=== PATIENT | male | born 1935 | race Hispanic/Latino ===

== ENCOUNTER 2020-11-25 13:57 | Inpatient (IN) | payer MEDICARE ==
[~2020-11-25] VITALS: Ht 162.6 cm; Wt 59.9 kg
[2020-11-25 14:36] LABS: BASOPHILS % (AUTO) 0.3 % (0.0-5.0); HEMATOCRIT 42.4 % (42-54); LYMPHOCYTES % (AUTO) 11.8 % (21.0-51.0); MEAN CORPUSCULAR HEMOGLOBIN 30.6 pg (27.0-33.0); MONOCYTES % (AUTO) 7.9 % (3.0-13.0); NEUTROPHILS % (AUTO) 78.9 % (40.0-77.0); PLATELET COUNT (AUTO) 138 K/uL (130-400); RED BLOOD CELL COUNT(AUTO) 4.71 MIL/uL (4.50-6.20); RED CELL DISTRIBUTION WIDTH 13.9 % (11.0-15.5); WHITE BLOOD COUNT (AUTO) 3.8 K/uL (4.8-10.8)
[2020-11-25] MEDS ORDERED: ACETAMINOPHEN 325 MG TAB ONE (14:39)
[2020-11-25 14:53] LABS: INR 1.02 (0.85-1.15); PROTHROMBIN TIME 11.1 SEC (9.6-11.6)
[2020-11-25 14:54] LABS: PARTIAL THROMBOPLASTIN TIME 36.5 SEC (26.3-35.5)
[2020-11-25 15:00] LABS: B-TYPE NATRIURETIC PEPTIDE 110 pg/mL (0-100)
[2020-11-25 15:07] LABS: ABG BASE EXCESS 6.1 mmol/L (-2.0-3.0); ABG HCO3 29.1 mmol/L (21.0-28.0); ABG PCO2 37 mmHg (35-48)
[2020-11-25 15:15] LABS: APPEARANCE,URINE Cloudy (CLEAR); BILIRUBIN,URINE Negative (NEGATIVE); COLOR,URINE Dark Yellow (YELLOW); GLUCOSE, URINE (UA) Negative (NEGATIVE); KETONES,URINE Trace mg/dL (NEGATIVE); LEUKOCYTE ESTERASE ,URINE Trace (NEGATIVE); NITRATE,URINE Negative (NEGATIVE); OCCULT BLOOD,URINE Large (NEGATIVE); PH,URINE 6.5 (5.0-8.0); PROTEIN,URINE 300 mg/dL (NEGATIVE)
[2020-11-25 15:21] LABS: RBC,URINE None Seen /HPF (0-1)
[2020-11-25 15:22] LABS: BACTERIA,URINE Few /HPF (None Seen); SQUAMOUS EPITHELIAL CELL,UR None Seen /HPF (0-2)
[2020-11-25 15:33] LABS: ALBUMIN 2.6 g/dL (3.5-5.0); BILIRUBIN,TOTAL 0.7 mg/dL (0.2-1.0); CREATININE 1.4 mg/dL (0.5-1.5); TOTAL PROTEIN, SERUM 7.2 g/dL (6.0-8.3); TROPONIN I 0.08 ng/mL (0.00-0.06)
[2020-11-25 15:42] LABS: POTASSIUM 2.9 mmol/L (3.5-5.1)
[2020-11-25] MEDS: DEXAMETHASONE SOD PHOSPHATE 4 MG/ML 1ML VIAL IVP SCH (16:30)
[2020-11-25] MEDS ORDERED: ERGOCALCIFEROL (VITAMIN D2) 50,000 UNIT CAPSULE PO ONE (16:30)
[2020-11-25] MEDS: CEFTRIAXONE 1G VIAL IVP SCH (16:30)
[2020-11-25] MEDS ORDERED: DOXYCYCLINE 100MG+NS 250ML IV SCH (16:30)
[2020-11-25] MEDS ORDERED: ONDANSETRON 4MG INJ IV PRN (16:45)
[2020-11-25] MEDS ORDERED: MAG/ALUM/SIMETH 30 ML UDCUP PO PRN (16:45)
[2020-11-25] MEDS ORDERED: GUAIFENESIN-DM 200/20 MG 10 ML PO PRN (16:45)
[2020-11-25] MEDS ORDERED: NITROGLYCERIN 0.4 MG SL TAB SL PRN (16:45)
[2020-11-25] MEDS ORDERED: ACETAMINOPHEN 325 MG TAB PO PRN ×2 (16:45)
[2020-11-25] MEDS ORDERED: LACTULOSE 20 GM/30 ML UDCUP PO PRN (16:45)
[2020-11-25] MEDS ORDERED: ALBUTEROL INHALER 90MCG/INH IH PRN (16:45)
[2020-11-25] MEDS ORDERED: DiphenhydrAMINE HCL 50 MG/ML VIAL IV PRN (16:45)
[2020-11-25] MEDS ORDERED: DIPHENHYDRAMINE HCL 25 MG CAPSULE PO PRN (16:45)
[2020-11-25] MEDS: ENOXAPARIN SODIUM 40 MG/0.4 ML SYRINGE SQ SCH (17:00)
[2020-11-25] MEDS ORDERED: POTASSIUM CHLORIDE 10MEQ/100ML 100 ML IV PRN (17:15)
[2020-11-25] MEDS ORDERED: KCL 20 MEQ ERTAB PO PRN (17:15)
[2020-11-25] MEDS ORDERED: LACTATED RINGERS 1000ML 1,000 ML IV SCH (17:45)
[2020-11-25] MEDS ORDERED: DEXAMETHASONE SOD PHOSPHATE 4 MG/ML 1ML VIAL ONE (18:10)
[2020-11-25] MEDS ORDERED: ERGOCALCIFEROL (VITAMIN D2) 50,000 UNIT CAPSULE ONE (18:10)
[2020-11-25] MEDS ORDERED: CEFTRIAXONE 1G VIAL ONE (18:11)
[2020-11-25] MEDS ORDERED: DOXYCYCLINE 100MG+NS 250ML 250 ML IV ONE (18:11)
[2020-11-25] MEDS ORDERED: LACTATED RINGERS 1000ML 1,000 ML IV ONE (18:11)
[2020-11-25] MEDS ORDERED: ENOXAPARIN SODIUM 40 MG/0.4 ML SYRINGE SQ ONE (18:33)
[2020-11-25 21:00] VITALS: BP 149/69
[2020-11-25] MEDS: ASCORBIC ACID 500 MG TAB PO SCH (21:12)
[2020-11-25] MEDS: ACETYLCYSTEINE 600 MG CAPSULE PO SCH (21:12)
[2020-11-25] MEDS: FAMOTIDINE 20MG VIAL IV SCH (21:12)
[2020-11-25] MEDS: DOXYCYCLINE 100MG+NS 250ML 250 ML IV SCH (21:51)
[2020-11-25] MEDS: POTASSIUM CHLORIDE 10MEQ/100ML 100 ML IV PRN (22:11)
[2020-11-25] MEDS: POTASSIUM CHLORIDE 10% ELIXIR 20 MEQ/15 ML UDCUP PO PRN ×2 (22:12→23:48)
[2020-11-25 23:31] VITALS: BP 134/69
[2020-11-26 03:22] VITALS: BP 136/70
[2020-11-26 04:08] LABS: BASOPHILS % (AUTO) 0.4 % (0.0-5.0); HEMATOCRIT 41.9 % (42-54); LYMPHOCYTES % (AUTO) 9.8 % (21.0-51.0); MEAN CORPUSCULAR HEMOGLOBIN 30.1 pg (27.0-33.0); MEAN CORPUSCULAR HGB CONC 32.9 g/dL (32.0-36.0); MEAN CORPUSCULAR VOLUME 91.3 fL (79-99); PLATELET COUNT (AUTO) 148 K/uL (130-400); RED BLOOD CELL COUNT(AUTO) 4.59 MIL/uL (4.50-6.20); RED CELL DISTRIBUTION WIDTH 13.9 % (11.0-15.5); WHITE BLOOD COUNT (AUTO) 2.9 K/uL (4.8-10.8)
[2020-11-26 04:30] LABS: ALBUMIN 2.1 g/dL (3.5-5.0); BILIRUBIN,TOTAL 0.5 mg/dL (0.2-1.0); CREATININE 1.4 mg/dL (0.5-1.5); CRP QUANTITATIVE 145.1 mg/L (0.00-9.0); MAGNESIUM 2.1 mg/dL (1.80-2.40); POTASSIUM 3.3 mmol/L (3.5-5.1); TOTAL PROTEIN, SERUM 6.4 g/dL (6.0-8.3)
[2020-11-26 04:32] LABS: BAND NEUTROPHILS % (MANUAL) 24 % (0-2); LYMPHOCYTES % (MANUAL) 4 % (22-44); MAN.DIFF COMMENT-IMPRESSION MANUAL DIFFERENTIAL; MONOCYTES % (MANUAL) 2 % (2-9); PLATELET MORPHOLOGY COMMENT ADEQUATE; REACTIVE LYMPHOCYTES 2 % (0-0); SEGMENTED NEUTROPHILS % 68 % (40-70)
[2020-11-26] MEDS: CEFTRIAXONE 1G VIAL IVP SCH ×2 (04:47→16:53)
[2020-11-26] MEDS: DEXAMETHASONE SOD PHOSPHATE 4 MG/ML 1ML VIAL IVP SCH ×2 (04:48→16:53)
[2020-11-26] MEDS: POTASSIUM CHLORIDE 10MEQ/100ML 100 ML IV PRN ×2 (05:21→10:02)
[2020-11-26 08:00] VITALS: BP 152/76
[2020-11-26] MEDS: DOXYCYCLINE 100MG+NS 250ML 250 ML IV SCH ×2 (08:48→19:53)
[2020-11-26] MEDS: ZINC SULFATE 220 CAPSULE PO SCH (08:48)
[2020-11-26] MEDS: ACETYLCYSTEINE 600 MG CAPSULE PO SCH ×2 (08:49→19:52)
[2020-11-26] MEDS: ASCORBIC ACID 500 MG TAB PO SCH ×3 (08:49→19:52)
[2020-11-26] MEDS ORDERED: ENAL10TA18 PO (09:33)
[2020-11-26] MEDS ORDERED: FLUT16H EN (09:33)
[2020-11-26] MEDS ORDERED: TERA10CA4 PO (09:33)
[2020-11-26] MEDS ORDERED: ATEN1TAB3 PO (09:33)
[2020-11-26] MEDS ORDERED: ROSU20TA31 PO (09:33)
[2020-11-26] MEDS ORDERED: PREG75CA75 PO (09:33)
[2020-11-26 12:00] VITALS: BP 136/71
[2020-11-26 16:00] VITALS: BP 133/75
[2020-11-26] MEDS: ENOXAPARIN SODIUM 40 MG/0.4 ML SYRINGE SQ SCH (16:53)
[2020-11-26] MEDS: PHARMACY COMMUNICATION MISC SCH ×2 (19:00→23:00)
[2020-11-26 19:21] VITALS: BP 140/67
[2020-11-26] MEDS: FAMOTIDINE 20MG VIAL IV SCH (19:53)
[2020-11-26 23:58] VITALS: BP 145/70
[2020-11-27 03:30] VITALS: BP 127/51
[2020-11-27 04:00] LABS: BASOPHILS % (AUTO) 0.1 % (0.0-5.0); HEMATOCRIT 40.2 % (42-54); MEAN CORPUSCULAR HEMOGLOBIN 30.9 pg (27.0-33.0); MEAN CORPUSCULAR HGB CONC 34.8 g/dL (32.0-36.0); MEAN CORPUSCULAR VOLUME 88.7 fL (79-99); MONOCYTES % (AUTO) 4.2 % (3.0-13.0); NEUTROPHILS % (AUTO) 91.6 % (40.0-77.0); PLATELET COUNT (AUTO) 154 K/uL (130-400); RED BLOOD CELL COUNT(AUTO) 4.53 MIL/uL (4.50-6.20); RED CELL DISTRIBUTION WIDTH 13.7 % (11.0-15.5); WHITE BLOOD COUNT (AUTO) 10.3 K/uL (4.8-10.8)
[2020-11-27 04:43] LABS: ALBUMIN 2.2 g/dL (3.5-5.0); BILIRUBIN,TOTAL 0.5 mg/dL (0.2-1.0); CREATININE 1.1 mg/dL (0.5-1.5); CRP QUANTITATIVE 67.6 mg/L (0.00-9.0); POTASSIUM 3.2 mmol/L (3.5-5.1); TOTAL PROTEIN, SERUM 6.5 g/dL (6.0-8.3)
[2020-11-27] MEDS: CEFTRIAXONE 1G VIAL IVP SCH ×2 (05:02→16:55)
[2020-11-27] MEDS: DEXAMETHASONE SOD PHOSPHATE 4 MG/ML 1ML VIAL IVP SCH ×2 (05:02→16:55)
[2020-11-27 08:00] VITALS: BP 134/56
[2020-11-27] MEDS: PHARMACY COMMUNICATION MISC SCH ×5 (09:00→23:00)
[2020-11-27] MEDS: ACETYLCYSTEINE 600 MG CAPSULE PO SCH ×2 (09:11→22:09)
[2020-11-27] MEDS: ASCORBIC ACID 500 MG TAB PO SCH ×3 (09:11→22:10)
[2020-11-27] MEDS: ZINC SULFATE 220 CAPSULE PO SCH (09:11)
[2020-11-27] MEDS: DOXYCYCLINE 100MG+NS 250ML 250 ML IV SCH ×2 (09:11→22:09)
[2020-11-27] MEDS ORDERED: LORAZEPAM 0.5 MG TABLET PO SCH (11:53)
[2020-11-27 12:00] VITALS: BP 142/70
[2020-11-27 16:00] VITALS: BP 158/74
[2020-11-27] MEDS: ENOXAPARIN SODIUM 40 MG/0.4 ML SYRINGE SQ SCH (16:56)
[2020-11-27] MEDS: POTASSIUM CHLORIDE 10MEQ/100ML 100 ML IV PRN ×2 (16:56→18:19)
[2020-11-27 19:00] VITALS: BP 154/82
[2020-11-27] MEDS: FAMOTIDINE 20MG VIAL IV SCH (22:10)
[2020-11-27 23:00] VITALS: BP 150/76
[2020-11-28] MEDS: PHARMACY COMMUNICATION MISC SCH ×6 (03:00→19:00)
[2020-11-28 04:00] VITALS: BP 151/79
[2020-11-28 04:39] LABS: BASOPHILS % (AUTO) 0.1 % (0.0-5.0); HEMATOCRIT 39.8 % (42-54); MEAN CORPUSCULAR HEMOGLOBIN 30.1 pg (27.0-33.0); MEAN CORPUSCULAR HGB CONC 33.7 g/dL (32.0-36.0); MEAN CORPUSCULAR VOLUME 89.4 fL (79-99); MONOCYTES % (AUTO) 6.6 % (3.0-13.0); NEUTROPHILS % (AUTO) 88.1 % (40.0-77.0); PLATELET COUNT (AUTO) 156 K/uL (130-400); RED BLOOD CELL COUNT(AUTO) 4.45 MIL/uL (4.50-6.20); RED CELL DISTRIBUTION WIDTH 13.6 % (11.0-15.5); WHITE BLOOD COUNT (AUTO) 8.9 K/uL (4.8-10.8)
[2020-11-28 05:10] LABS: ALBUMIN 2.1 g/dL (3.5-5.0); BILIRUBIN,TOTAL 0.6 mg/dL (0.2-1.0); CREATININE 1.1 mg/dL (0.5-1.5); CRP QUANTITATIVE 73.6 mg/L (0.00-9.0); POTASSIUM 3.6 mmol/L (3.5-5.1); TOTAL PROTEIN, SERUM 6.3 g/dL (6.0-8.3)
[2020-11-28] MEDS: CEFTRIAXONE 1G VIAL IVP SCH ×2 (05:18→17:34)
[2020-11-28] MEDS: DEXAMETHASONE SOD PHOSPHATE 4 MG/ML 1ML VIAL IVP SCH (05:19)
[2020-11-28 07:00] VITALS: BP 153/77
[2020-11-28] MEDS: ASCORBIC ACID 500 MG TAB PO SCH ×3 (08:51→21:29)
[2020-11-28] MEDS: ZINC SULFATE 220 CAPSULE PO SCH (08:52)
[2020-11-28] MEDS: ACETYLCYSTEINE 600 MG CAPSULE PO SCH ×2 (08:52→21:29)
[2020-11-28] MEDS: DOXYCYCLINE 100MG+NS 250ML 250 ML IV SCH ×2 (08:52→21:29)
[2020-11-28 12:00] VITALS: BP 135/73
[2020-11-28 16:30] VITALS: BP 146/71
[2020-11-28] MEDS: ENOXAPARIN SODIUM 40 MG/0.4 ML SYRINGE SQ SCH (17:34)
[2020-11-28 20:00] VITALS: BP 160/80
[2020-11-28] MEDS: FAMOTIDINE 20MG VIAL IV SCH (21:29)
[2020-11-28 23:47] VITALS: BP 161/75
[2020-11-29] MEDS: CEFTRIAXONE 1G VIAL IVP SCH ×2 (04:10→19:30)
[2020-11-29 04:30] VITALS: BP 161/66
[2020-11-29 04:59] LABS: BASOPHILS % (AUTO) 0.1 % (0.0-5.0); HEMATOCRIT 39.8 % (42-54); LYMPHOCYTES % (AUTO) 6.6 % (21.0-51.0); MEAN CORPUSCULAR HEMOGLOBIN 30.8 pg (27.0-33.0); MEAN CORPUSCULAR HGB CONC 34.7 g/dL (32.0-36.0); MEAN CORPUSCULAR VOLUME 88.8 fL (79-99); MONOCYTES % (AUTO) 5.5 % (3.0-13.0); NEUTROPHILS % (AUTO) 86.4 % (40.0-77.0); PLATELET COUNT (AUTO) 192 K/uL (130-400); RED BLOOD CELL COUNT(AUTO) 4.48 MIL/uL (4.50-6.20); RED CELL DISTRIBUTION WIDTH 13.6 % (11.0-15.5); WHITE BLOOD COUNT (AUTO) 8.8 K/uL (4.8-10.8)
[2020-11-29 05:36] LABS: BILIRUBIN,TOTAL 0.8 mg/dL (0.2-1.0); CREATININE 0.9 mg/dL (0.5-1.5); CRP QUANTITATIVE 48.7 mg/L (0.00-9.0); TOTAL PROTEIN, SERUM 6.1 g/dL (6.0-8.3)
[2020-11-29] MEDS: POTASSIUM CHLORIDE 10MEQ/100ML 100 ML IV PRN ×2 (05:50→11:14)
[2020-11-29] MEDS: PHARMACY COMMUNICATION MISC SCH ×6 (07:00→23:00)
[2020-11-29 08:00] VITALS: BP 159/82
[2020-11-29] MEDS: ACETYLCYSTEINE 600 MG CAPSULE PO SCH ×2 (08:46→20:11)
[2020-11-29] MEDS: ASCORBIC ACID 500 MG TAB PO SCH ×3 (08:46→20:12)
[2020-11-29] MEDS: DEXAMETHASONE SOD PHOSPHATE 4 MG/ML 1ML VIAL IVP SCH (08:46)
[2020-11-29] MEDS: ZINC SULFATE 220 CAPSULE PO SCH (08:46)
[2020-11-29] MEDS: DOXYCYCLINE 100MG+NS 250ML 250 ML IV SCH ×2 (08:47→20:11)
[2020-11-29 12:00] VITALS: BP 164/80
[2020-11-29 16:00] VITALS: BP 160/82
[2020-11-29] MEDS: ENOXAPARIN SODIUM 40 MG/0.4 ML SYRINGE SQ SCH (17:37)
[2020-11-29 20:00] VITALS: BP 163/82
[2020-11-29] MEDS: FAMOTIDINE 20MG VIAL IV SCH (20:11)
[2020-11-30] MEDS: PHARMACY COMMUNICATION MISC SCH ×8 (03:00→23:00)
[2020-11-30] MEDS: CEFTRIAXONE 1G VIAL IVP SCH (03:36)
[2020-11-30 04:00] VITALS: BP 136/72
[2020-11-30 05:13] LABS: BASOPHILS % (AUTO) 0.1 % (0.0-5.0); HEMATOCRIT 43.2 % (42-54); LYMPHOCYTES % (AUTO) 7.1 % (21.0-51.0); MEAN CORPUSCULAR HEMOGLOBIN 29.5 pg (27.0-33.0); MEAN CORPUSCULAR HGB CONC 33.1 g/dL (32.0-36.0); MEAN CORPUSCULAR VOLUME 89.3 fL (79-99); MONOCYTES % (AUTO) 4.3 % (3.0-13.0); NEUTROPHILS % (AUTO) 86.5 % (40.0-77.0); PLATELET COUNT (AUTO) 216 K/uL (130-400); RED BLOOD CELL COUNT(AUTO) 4.84 MIL/uL (4.50-6.20); RED CELL DISTRIBUTION WIDTH 13.5 % (11.0-15.5); WHITE BLOOD COUNT (AUTO) 7.6 K/uL (4.8-10.8)
[2020-11-30 05:47] LABS: BILIRUBIN,DIRECT 0.1 mg/dL (0.0-0.3); BILIRUBIN,TOTAL 0.6 mg/dL (0.2-1.0); CREATININE 0.9 mg/dL (0.5-1.5); CRP QUANTITATIVE 68.6 mg/L (0.00-9.0); TOTAL PROTEIN, SERUM 6.2 g/dL (6.0-8.3)
[2020-11-30 05:56] LABS: POTASSIUM 2.9 mmol/L (3.5-5.1)
[2020-11-30] MEDS: POTASSIUM CHLORIDE 10MEQ/100ML 100 ML IV PRN ×2 (06:28→20:35)
[2020-11-30 08:00] VITALS: BP 172/79
[2020-11-30] MEDS: ZINC SULFATE 220 CAPSULE PO SCH (08:10)
[2020-11-30] MEDS: ACETYLCYSTEINE 600 MG CAPSULE PO SCH (08:10)
[2020-11-30] MEDS: KCL 20 MEQ ERTAB PO SCH (08:11)
[2020-11-30] MEDS: DEXAMETHASONE SOD PHOSPHATE 4 MG/ML 1ML VIAL IVP SCH (08:16)
[2020-11-30] MEDS: ASCORBIC ACID 500 MG TAB PO SCH ×3 (08:16→20:35)
[2020-11-30] MEDS: DOXYCYCLINE 100MG+NS 250ML 250 ML IV SCH (08:16)
[2020-11-30] MEDS ORDERED: KCL 20 MEQ ERTAB PO SCH (08:30)
[2020-11-30] MEDS: MAGNESIUM 2GM PREMIX 50ML 50 ML IV SCH (11:24)
[2020-11-30 12:00] VITALS: BP 138/66
[2020-11-30] MEDS ORDERED: REMDESIVIR (EUA) 520 200 MG in 0.9% NACL 250ML 250 ML IV ONE (14:00)
[2020-11-30] MEDS ORDERED: COMPOUND IV REFRIGERATED 1 EACH IVSOLN MISC PRN (14:00)
[2020-11-30 16:00] VITALS: BP 141/72
[2020-11-30] MEDS ORDERED: PHARMACY COMMUNICATION MISC SCH (16:45)
[2020-11-30] MEDS: ENOXAPARIN SODIUM 40 MG/0.4 ML SYRINGE SQ SCH (17:44)
[2020-11-30 20:00] VITALS: BP 145/80
[2020-11-30] MEDS: FAMOTIDINE 20MG VIAL IV SCH (20:35)
[2020-12-01] VITALS: BP 146/80
[2020-12-01] MEDS: PHARMACY COMMUNICATION MISC SCH ×9 (03:00→23:00)
[2020-12-01 04:00] VITALS: BP 144/77
[2020-12-01 04:35] LABS: BASOPHILS % (AUTO) 0.7 % (0.0-5.0); EOSINOPHILS % (AUTO) 0.7 % (0.0-8.0); HEMATOCRIT 44.1 % (42-54); LYMPHOCYTES % (AUTO) 7.1 % (21.0-51.0); MEAN CORPUSCULAR HEMOGLOBIN 30.9 pg (27.0-33.0); MEAN CORPUSCULAR HGB CONC 34.5 g/dL (32.0-36.0); MEAN CORPUSCULAR VOLUME 89.6 fL (79-99); MONOCYTES % (AUTO) 3.8 % (3.0-13.0); NEUTROPHILS % (AUTO) 83.7 % (40.0-77.0); PLATELET COUNT (AUTO) 230 K/uL (130-400); RED BLOOD CELL COUNT(AUTO) 4.92 MIL/uL (4.50-6.20); WHITE BLOOD COUNT (AUTO) 7.3 K/uL (4.8-10.8)
[2020-12-01 04:50] LABS: ALBUMIN 2.1 g/dL (3.5-5.0); BILIRUBIN,TOTAL 0.9 mg/dL (0.2-1.0); CRP QUANTITATIVE 146.8 mg/L (0.00-9.0); MAGNESIUM 1.8 mg/dL (1.80-2.40); POTASSIUM 3.1 mmol/L (3.5-5.1); TOTAL PROTEIN, SERUM 6.6 g/dL (6.0-8.3)
[2020-12-01] MEDS: REMDESIVIR LABS MISC SCH (06:00)
[2020-12-01 08:00] VITALS: BP 166/66
[2020-12-01] MEDS ORDERED: DEXAMETHASONE SOD PHOSPHATE 4 MG/ML 1ML VIAL IVP SCH (09:00)
[2020-12-01] MEDS ORDERED: DEXAMETHASONE SOD PHOSPHATE 4 MG/ML 1ML VIAL ONE (09:16)
[2020-12-01] MEDS: ZINC SULFATE 220 CAPSULE PO SCH (09:21)
[2020-12-01] MEDS: ASCORBIC ACID 500 MG TAB PO SCH ×3 (09:21→20:13)
[2020-12-01] MEDS: KCL 20 MEQ ERTAB PO SCH (09:21)
[2020-12-01] MEDS: DEXAMETHASONE SOD PHOSPHATE 4 MG/ML 1ML VIAL IVP SCH ×2 (09:22→20:13)
[2020-12-01 12:00] VITALS: BP 175/77
[2020-12-01] MEDS: REMDESIVIR (EUA) 520 100 MG in 0.9% NACL 250ML 250 ML IV SCH (14:16)
[2020-12-01 16:00] VITALS: BP 156/86
[2020-12-01] MEDS: ENOXAPARIN SODIUM 40 MG/0.4 ML SYRINGE SQ SCH (16:27)
[2020-12-01] MEDS: FAMOTIDINE 20MG VIAL IV SCH (20:12)
[2020-12-01 20:46] VITALS: BP 169/86
[2020-12-02] VITALS (9 sets, daily range): BP systolic 142–185; BP diastolic 72–93
[2020-12-02] MEDS: PHARMACY COMMUNICATION MISC SCH ×9 (03:00→23:00)
[2020-12-02 05:13] LABS: BILIRUBIN,TOTAL 1.1 mg/dL (0.2-1.0); CREATININE 0.9 mg/dL (0.5-1.5); CRP QUANTITATIVE 163.2 mg/L (0.00-9.0); POTASSIUM 3.7 mmol/L (3.5-5.1); TOTAL PROTEIN, SERUM 6.7 g/dL (6.0-8.3)
[2020-12-02] MEDS: REMDESIVIR LABS MISC SCH (06:00)
[2020-12-02] MEDS ORDERED: AMLODIPINE 5 MG TAB PO SCH (07:15)
[2020-12-02] MEDS: BARICITINIB (EUA) 2 MG TABLET PO SCH (08:37)
[2020-12-02] MEDS: ZINC SULFATE 220 CAPSULE PO SCH (08:37)
[2020-12-02] MEDS: ASCORBIC ACID 500 MG TAB PO SCH ×3 (08:37→22:11)
[2020-12-02] MEDS: KCL 20 MEQ ERTAB PO SCH (08:37)
[2020-12-02] MEDS: DEXAMETHASONE SOD PHOSPHATE 4 MG/ML 1ML VIAL IVP SCH ×2 (08:37→22:12)
[2020-12-02] MEDS ORDERED: DEXMEDETOMIDINE HCL 200 MCG in 0.9%NACL 50ML 50 ML IV SCH (11:00)
[2020-12-02] MEDS: REMDESIVIR (EUA) 520 100 MG in 0.9% NACL 250ML 250 ML IV SCH (14:11)
[2020-12-02] MEDS: ENOXAPARIN SODIUM 40 MG/0.4 ML SYRINGE SQ SCH (17:42)
[2020-12-02] MEDS: DEXMEDETOMIDINE HCL 400 MCG in 0.9%NACL 100ML 100 ML IV SCH (18:21)
[2020-12-02] MEDS: FAMOTIDINE 20MG VIAL IV SCH (22:11)
[2020-12-03] VITALS (24 sets, daily range): BP systolic 131–175; BP diastolic 61–86
[2020-12-03] MEDS: PHARMACY COMMUNICATION MISC SCH ×7 (03:00→19:00)
[2020-12-03 03:56] LABS: CRP QUANTITATIVE 79.3 mg/L (0.00-9.0); MAGNESIUM 1.7 mg/dL (1.80-2.40)
[2020-12-03 05:24] LABS: CREATININE 0.9 mg/dL (0.5-1.5); POTASSIUM 4.1 mmol/L (3.5-5.1)
[2020-12-03 05:25] LABS: ALBUMIN 2.1 g/dL (3.5-5.0); BILIRUBIN,TOTAL 0.9 mg/dL (0.2-1.0); TOTAL PROTEIN, SERUM 6.5 g/dL (6.0-8.3)
[2020-12-03 05:29] LABS: BASOPHILS % (AUTO) 0.3 % (0.0-5.0); MEAN CORPUSCULAR HEMOGLOBIN 29.8 pg (27.0-33.0); MEAN CORPUSCULAR HGB CONC 32.8 g/dL (32.0-36.0); MEAN CORPUSCULAR VOLUME 90.9 fL (79-99); MONOCYTES % (AUTO) 4.7 % (3.0-13.0); PLATELET COUNT (AUTO) 285 K/uL (130-400); RED BLOOD CELL COUNT(AUTO) 4.73 MIL/uL (4.50-6.20)
[2020-12-03] MEDS: MAGNESIUM 2GM PREMIX 50ML 50 ML IV SCH (05:40)
[2020-12-03] MEDS: REMDESIVIR LABS MISC SCH (06:00)
[2020-12-03] MEDS: ASCORBIC ACID 500 MG TAB PO SCH ×3 (08:09→23:03)
[2020-12-03] MEDS: ZINC SULFATE 220 CAPSULE PO SCH (08:09)
[2020-12-03] MEDS: DEXAMETHASONE SOD PHOSPHATE 4 MG/ML 1ML VIAL IVP SCH ×2 (08:10→23:03)
[2020-12-03] MEDS ORDERED: AMLODIPINE 5 MG TAB PO SCH ×2 (09:00→14:00)
[2020-12-03] MEDS: BARICITINIB (EUA) 2 MG TABLET PO SCH (09:16)
[2020-12-03] MEDS: REMDESIVIR (EUA) 520 100 MG in 0.9% NACL 250ML 250 ML IV SCH (13:28)
[2020-12-03] MEDS: ENOXAPARIN SODIUM 40 MG/0.4 ML SYRINGE SQ SCH ×2 (15:25→23:04)
[2020-12-03] MEDS: ATORVASTATIN 40 MG TABLET PO SCH (23:03)
[2020-12-03] MEDS: FAMOTIDINE 20MG VIAL IV SCH (23:04)
[2020-12-04] VITALS (12 sets, daily range): BP systolic 116–169; BP diastolic 63–84
[2020-12-04] MEDS: PHARMACY COMMUNICATION MISC SCH ×3 (03:00→19:00)
[2020-12-04 05:35] LABS: BASOPHILS % (AUTO) 0.2 % (0.0-5.0); HEMATOCRIT 43.1 % (42-54); LYMPHOCYTES % (AUTO) 3.8 % (21.0-51.0); MEAN CORPUSCULAR HEMOGLOBIN 29.5 pg (27.0-33.0); MEAN CORPUSCULAR HGB CONC 32.7 g/dL (32.0-36.0); MEAN CORPUSCULAR VOLUME 90.2 fL (79-99); MONOCYTES % (AUTO) 4.2 % (3.0-13.0); NEUTROPHILS % (AUTO) 89.1 % (40.0-77.0); PLATELET COUNT (AUTO) 302 K/uL (130-400); RED BLOOD CELL COUNT(AUTO) 4.78 MIL/uL (4.50-6.20); RED CELL DISTRIBUTION WIDTH 13.9 % (11.0-15.5); WHITE BLOOD COUNT (AUTO) 5.5 K/uL (4.8-10.8)
[2020-12-04] MEDS: REMDESIVIR LABS MISC SCH (06:00)
[2020-12-04 06:04] LABS: ALBUMIN 2.1 g/dL (3.5-5.0); BILIRUBIN,TOTAL 1.2 mg/dL (0.2-1.0); CREATININE 0.9 mg/dL (0.5-1.5); CRP QUANTITATIVE 60.9 mg/L (0.00-9.0); POTASSIUM 3.8 mmol/L (3.5-5.1); TOTAL PROTEIN, SERUM 6.3 g/dL (6.0-8.3)
[2020-12-04] MEDS: POTASSIUM CHLORIDE 10% ELIXIR 20 MEQ/15 ML UDCUP PO PRN (06:58)
[2020-12-04] MEDS: ASCORBIC ACID 500 MG TAB PO SCH ×3 (08:11→21:30)
[2020-12-04] MEDS: TERAZOSIN 5MG CAP PO SCH (08:11)
[2020-12-04] MEDS: AMLODIPINE 5 MG TAB PO SCH (08:11)
[2020-12-04] MEDS: DEXAMETHASONE SOD PHOSPHATE 4 MG/ML 1ML VIAL IVP SCH ×2 (08:12→20:54)
[2020-12-04] MEDS: ENOXAPARIN SODIUM 40 MG/0.4 ML SYRINGE SQ SCH ×2 (08:12→20:54)
[2020-12-04] MEDS: ZINC SULFATE 220 CAPSULE PO SCH (08:12)
[2020-12-04] MEDS: REMDESIVIR (EUA) 520 100 MG in 0.9% NACL 250ML 250 ML IV SCH (14:58)
[2020-12-04] MEDS: BARICITINIB (EUA) 2 MG TABLET PO SCH (15:25)
[2020-12-04] MEDS: FAMOTIDINE 20MG VIAL IV SCH (20:54)
[2020-12-04] MEDS: ATORVASTATIN 40 MG TABLET PO SCH (20:54)
[2020-12-05 03:00] VITALS: BP 132/72
[2020-12-05 05:47] LABS: CREATININE 0.9 mg/dL (0.5-1.5)
[2020-12-05] MEDS: REMDESIVIR LABS MISC SCH (06:00)
[2020-12-05 07:00] VITALS: BP 141/67
[2020-12-05] MEDS: PHARMACY COMMUNICATION MISC SCH ×4 (09:00→19:24)
[2020-12-05] MEDS: ASCORBIC ACID 500 MG TAB PO SCH ×3 (09:20→21:09)
[2020-12-05] MEDS: AMLODIPINE 5 MG TAB PO SCH (09:20)
[2020-12-05] MEDS: ZINC SULFATE 220 CAPSULE PO SCH (09:20)
[2020-12-05] MEDS: TERAZOSIN 5MG CAP PO SCH (09:20)
[2020-12-05] MEDS: BARICITINIB (EUA) 2 MG TABLET PO SCH (09:21)
[2020-12-05] MEDS: ENOXAPARIN SODIUM 40 MG/0.4 ML SYRINGE SQ SCH ×2 (09:21→21:09)
[2020-12-05] MEDS: DEXAMETHASONE SOD PHOSPHATE 4 MG/ML 1ML VIAL IVP SCH (09:22)
[2020-12-05 11:00] VITALS: BP 138/70
[2020-12-05] MEDS ORDERED: DEXTROSE 5%-WATER 1,000 ML IV SCH (12:00)
[2020-12-05 16:00] VITALS: BP 119/58
[2020-12-05 19:41] VITALS: BP 130/71
[2020-12-05] MEDS: ATORVASTATIN 40 MG TABLET PO SCH (21:09)
[2020-12-05] MEDS: FAMOTIDINE 20MG VIAL IV SCH (21:09)
[2020-12-05 23:57] VITALS: BP 125/65
[2020-12-06 03:12] VITALS: BP 137/70
[2020-12-06 05:03] LABS: CRP QUANTITATIVE 34.2 mg/L (0.00-9.0)
[2020-12-06 06:06] LABS: ALBUMIN 2.1 g/dL (3.5-5.0); BILIRUBIN,TOTAL 1.1 mg/dL (0.2-1.0); CREATININE 0.9 mg/dL (0.5-1.5); POTASSIUM 3.7 mmol/L (3.5-5.1); TOTAL PROTEIN, SERUM 6.1 g/dL (6.0-8.3)
[2020-12-06 07:00] VITALS: BP 147/76
[2020-12-06] MEDS: TERAZOSIN 5MG CAP PO SCH (09:00)
[2020-12-06] MEDS: BARICITINIB (EUA) 2 MG TABLET PO SCH (09:00)
[2020-12-06] MEDS: ASCORBIC ACID 500 MG TAB PO SCH ×4 (09:00→21:05)
[2020-12-06] MEDS: ZINC SULFATE 220 CAPSULE PO SCH (09:00)
[2020-12-06] MEDS: AMLODIPINE 5 MG TAB PO SCH (09:00)
[2020-12-06] MEDS: DEXAMETHASONE SOD PHOSPHATE 4 MG/ML 1ML VIAL IVP SCH (09:41)
[2020-12-06] MEDS: ENOXAPARIN SODIUM 60 MG/0.6 ML SQ SCH ×2 (09:42→21:06)
[2020-12-06] MEDS ORDERED: FUROSEMIDE 20MG VIAL ONE (09:59)
[2020-12-06] MEDS ORDERED: FUROSEMIDE 20MG VIAL IV SCH (10:00)
[2020-12-06 11:00] VITALS: BP 144/71
[2020-12-06] MEDS: DEXMEDETOMIDINE HCL 200 MCG in 0.9%NACL 50ML 50 ML IV SCH (11:35)
[2020-12-06] MEDS: DEXMEDETOMIDINE HCL 400 MCG in 0.9%NACL 100ML 100 ML IV SCH (14:05)
[2020-12-06 16:00] VITALS: BP 117/75
[2020-12-06 19:20] VITALS: BP 109/68
[2020-12-06] MEDS: ATORVASTATIN 40 MG TABLET PO SCH ×2 (21:00→21:05)
[2020-12-06] MEDS: FAMOTIDINE 20MG VIAL IV SCH (21:05)
[2020-12-06 23:22] VITALS: BP 113/67
[2020-12-07 03:54] VITALS: BP 135/73
[2020-12-07 05:16] LABS: CRP QUANTITATIVE 87.3 mg/L (0.00-9.0); MAGNESIUM 2.1 mg/dL (1.80-2.40)
[2020-12-07 06:11] LABS: BASOPHILS % (AUTO) 0.3 % (0.0-5.0); EOSINOPHILS % (AUTO) 0.3 % (0.0-8.0); HEMATOCRIT 41.9 % (42-54); LYMPHOCYTES % (AUTO) 2.8 % (21.0-51.0); MEAN CORPUSCULAR HEMOGLOBIN 30.6 pg (27.0-33.0); MEAN CORPUSCULAR HGB CONC 34.1 g/dL (32.0-36.0); MEAN CORPUSCULAR VOLUME 89.5 fL (79-99); NEUTROPHILS % (AUTO) 92.3 % (40.0-77.0); PLATELET COUNT (AUTO) 268 K/uL (130-400); RED BLOOD CELL COUNT(AUTO) 4.68 MIL/uL (4.50-6.20); RED CELL DISTRIBUTION WIDTH 13.9 % (11.0-15.5); WHITE BLOOD COUNT (AUTO) 11.5 K/uL (4.8-10.8)
[2020-12-07 06:23] LABS: ALBUMIN 2.1 g/dL (3.5-5.0); BILIRUBIN,TOTAL 1.1 mg/dL (0.2-1.0); POTASSIUM 3.8 mmol/L (3.5-5.1); TOTAL PROTEIN, SERUM 6.2 g/dL (6.0-8.3)
[2020-12-07] MEDS: DEXMEDETOMIDINE HCL 400 MCG in 0.9%NACL 100ML 100 ML IV SCH (07:52)
[2020-12-07 08:00] VITALS: BP 140/74
[2020-12-07] MEDS: DEXAMETHASONE SOD PHOSPHATE 4 MG/ML 1ML VIAL IVP SCH (08:47)
[2020-12-07] MEDS: ENOXAPARIN SODIUM 60 MG/0.6 ML SQ SCH (08:48)
[2020-12-07] MEDS: TERAZOSIN 5MG CAP PO SCH (09:00)
[2020-12-07] MEDS: BARICITINIB (EUA) 2 MG TABLET PO SCH (09:00)
[2020-12-07] MEDS: AMLODIPINE 5 MG TAB PO SCH (09:00)
[2020-12-07 12:12] VITALS: BP 133/81
[2020-12-07 16:30] VITALS: BP 116/65
[2020-12-07 20:00] VITALS: BP 161/82
[2020-12-07] MEDS: ATORVASTATIN 40 MG TABLET PO SCH (21:00)
[2020-12-07 23:28] VITALS: BP 132/87
[2020-12-07] MEDS: DEXMEDETOMIDINE HCL 200 MCG in 0.9%NACL 50ML 50 ML IV SCH (23:38)
[2020-12-08] MEDS ORDERED: PHARMACY COMMUNICATION MISC SCH (01:30)
[2020-12-08 03:11] VITALS: BP 138/79
[2020-12-08] MEDS ORDERED: DEXMEDETOMIDINE HCL 400 MCG in 0.9%NACL 100ML 100 ML IV SCH (07:00)
[2020-12-08 07:44] VITALS: BP 142/76
[2020-12-08] MEDS: AMLODIPINE 5 MG TAB PO SCH (08:24)
[2020-12-08] MEDS: BARICITINIB (EUA) 2 MG TABLET PO SCH (08:24)
[2020-12-08] MEDS: DEXAMETHASONE SOD PHOSPHATE 4 MG/ML 1ML VIAL IVP SCH (08:25)
[2020-12-08] MEDS: TERAZOSIN 5MG CAP PO SCH (08:25)
[2020-12-08] MEDS ORDERED: LORAZEPAM 1 MG TABLET PO PRN (09:45)
[2020-12-08] MEDS ORDERED: ONDANSETRON 4MG INJ IVP PRN (09:45)
[2020-12-08] MEDS ORDERED: ONDANSETRON 4MG TABLET PO PRN (09:45)
[2020-12-08] MEDS ORDERED: MORPHINE 5 MG/ML VIAL (5MG OR GREATER DOSE) IV PRN ×3 (09:45→10:54)
[2020-12-08] MEDS ORDERED: ACETAMINOPHEN 325 MG TAB PO PRN (09:45)
[2020-12-08] MEDS ORDERED: ACETAMINOPHEN 650 MG SUPPOSITORY RC PRN (09:45)
[2020-12-08] MEDS ORDERED: HALOPERIDOL 1 MG TABLET PO PRN (09:45)
[2020-12-08] MEDS ORDERED: ARTIFICAL TEARS SOL 15 ML OU PRN (10:51)
[2020-12-08] MEDS: MORPHINE 2 MG SYG IVP PRN ×2 (17:42→19:42)
[2020-12-08] MEDS: ATORVASTATIN 40 MG TABLET PO SCH (20:56)
[2020-12-08] MEDS: LORAZEPAM 2 MG/ML 1 ML VIAL IVP PRN (23:12)
[2020-12-09 00:08] VITALS: BP 133/77
[2020-12-09] MEDS: MORPHINE 2 MG SYG IVP PRN ×7 (02:12→20:12)
[2020-12-09 07:27] VITALS: BP 140/75
[2020-12-09] MEDS: AMLODIPINE 5 MG TAB PO SCH (08:34)
[2020-12-09] MEDS: BARICITINIB (EUA) 2 MG TABLET PO SCH (08:34)
[2020-12-09] MEDS: DEXAMETHASONE SOD PHOSPHATE 4 MG/ML 1ML VIAL IVP SCH (08:38)
[2020-12-09] MEDS: TERAZOSIN 5MG CAP PO SCH (09:00)
[2020-12-09 19:49] VITALS: BP 161/84
[2020-12-09 23:59] VITALS: BP 144/82
[2020-12-10] MEDS: MORPHINE 2 MG SYG IVP PRN ×6 (01:06→17:05)
[2020-12-10 04:09] VITALS: BP 150/86
[2020-12-10 08:00] VITALS: BP 151/83
[2020-12-10] MEDS: TERAZOSIN 5MG CAP PO SCH (09:00)
[2020-12-10] MEDS: AMLODIPINE 5 MG TAB PO SCH (09:00)
[2020-12-10] MEDS: LORAZEPAM 2 MG/ML 1 ML VIAL IVP PRN ×2 (09:50→21:34)
[2020-12-10 12:00] VITALS: BP 123/65
[2020-12-10 15:58] VITALS: BP 135/75
[2020-12-10 19:10] VITALS: BP 166/77
[2020-12-11] VITALS: BP 127/86
[2020-12-11] MEDS: MORPHINE 2 MG SYG IVP PRN ×2 (01:35→09:30)
[2020-12-11 03:41] VITALS: BP 149/88
[2020-12-11] MEDS: LORAZEPAM 2 MG/ML 1 ML VIAL IVP PRN (05:21)
[2020-12-11 08:00] VITALS: BP 119/75
[2020-12-11] MEDS: TERAZOSIN 5MG CAP PO SCH (08:29)
[2020-12-11] MEDS: AMLODIPINE 5 MG TAB PO SCH (08:30)
[2020-12-11] MEDS: MORPHINE 5 MG/ML VIAL (5MG OR GREATER DOSE) IV PRN ×3 (12:31→20:30)
[2020-12-11 20:00] VITALS: BP 101/70
[2020-12-11 23:53] VITALS: BP 105/47
[2020-12-12 04:40] VITALS: BP 121/66
[2020-12-12] MEDS: MORPHINE 5 MG/ML VIAL (5MG OR GREATER DOSE) IV PRN ×4 (05:51→20:15)
[2020-12-12 08:00] VITALS: BP 113/64
[2020-12-12] MEDS: TERAZOSIN 5MG CAP PO SCH (09:00)
[2020-12-12] MEDS: AMLODIPINE 5 MG TAB PO SCH (09:00)
[2020-12-12] MEDS ORDERED: 0.9%NACL 1000ML 1,000 ML IV ONE (11:19)
[2020-12-12 20:25] VITALS: BP 101/55
[2020-12-13 00:15] VITALS: BP 91/44
[2020-12-13] MEDS: MORPHINE 5 MG/ML VIAL (5MG OR GREATER DOSE) IV PRN ×2 (02:09→08:44)
[2020-12-13 04:34] VITALS: BP 76/44
[2020-12-13 08:00] VITALS: BP 95/48
[2020-12-13] MEDS: TERAZOSIN 5MG CAP PO SCH (09:00)
[2020-12-13] MEDS: AMLODIPINE 5 MG TAB PO SCH (09:00)
[2020-12-13] MEDS ORDERED: MORPHINE 5 MG/ML VIAL (5MG OR GREATER DOSE) IV PRN ×2 (12:30)
== END 2020-12-13 14:59 | DRG 177 ==
LOC: EDH 13:57 → EDHIP 16:31 → 2AH 19:06 → 2BH 12-02 20:28 → 2AH 12-04 08:53
PROVIDERS: ADMIT Family Medicine; ATTEND Family Medicine
PROC: XW033E5 Introduction of Remdesivir Anti-infective into Peripheral Vein, Percutaneous Approach, New Technology Group 5 (ICD-10-PCS; principal; 2020-11-30)
PROC: XW13325 Transfusion of Convalescent Plasma (Nonautologous) into Peripheral Vein, Percutaneous Approach, New Technology Group 5 (ICD-10-PCS; 2020-12-02)
PROC: 5A09357 Assistance with Respiratory Ventilation, Less than 24 Consecutive Hours, Continuous Positive Airway Pressure (ICD-10-PCS; 2020-12-06)
PROC: 5A0935A Assistance with Respiratory Ventilation, Less than 24 Consecutive Hours, High Flow/Velocity Cannula (ICD-10-PCS; 2020-12-06)
PROC: 5A09357 Assistance with Respiratory Ventilation, Less than 24 Consecutive Hours, Continuous Positive Airway Pressure (ICD-10-PCS; 2020-12-07)
PROC: 5A09357 Assistance with Respiratory Ventilation, Less than 24 Consecutive Hours, Continuous Positive Airway Pressure (ICD-10-PCS; 2020-12-08)
DX: U07.1 COVID-19 (principal); J96.01 Acute respiratory failure with hypoxia; J12.82 Pneumonia due to coronavirus disease 2019; E43 Unspecified severe protein-calorie malnutrition; E87.3 Alkalosis; M62.82 Rhabdomyolysis; N17.9 Acute kidney failure, unspecified; F05 Delirium due to known physiological condition; E87.6 Hypokalemia; N18.2 Chronic kidney disease, stage 2 (mild); E78.00 Pure hypercholesterolemia, unspecified; L89.151 Pressure ulcer of sacral region, stage 1; E78.5 Hyperlipidemia, unspecified; R53.81 Other malaise; I12.9 Hypertensive chronic kidney disease with stage 1 through stage 4 chronic kidney disease, or unspecified chronic kidney disease; K75.9 Inflammatory liver disease, unspecified; Z51.5 Encounter for palliative care; Z66 Do not resuscitate; Z68.22 Body mass index [BMI] 22.0-22.9, adult; Z78.9 Other specified health status
CPT/HCPCS: 36415; 36600; 71045; 71250; 72100; 72170; 80048; 80053; 80076; 81001; 82550; 82728; 82803; 82948; 82977; 83605; 83615; 83735; 83874; 83880; 84132; 84145; 84484; 85025; 85378; 85610; 85730; 86140; 86900; 86901; 86927; 87040; 87077; 87088; 87186; 87426; 87804; 93005; 93970; 94660; 97039; G0378; J0696; J1100; J1650; J1940; J2060; J2270; J3475; J3490; J7030; J7050; J7070; J7120; U0003

== ENCOUNTER 2020-12-13 15:00 | Inpatient (IN) | payer OTHER ==
[~2020-12-13 15:00] MED LIST: ATEN1TAB3 PO; ENAL10TA18 PO; FLUT16H EN; PREG75CA75 PO; ROSU20TA31 PO; TERA10CA4 PO
[2020-12-13] MEDS ORDERED: MORPHINE 5 MG/ML VIAL (5MG OR GREATER DOSE) IV PRN (18:45)
[2020-12-13] MEDS ORDERED: ACETAMINOPHEN 325 MG TAB PO PRN (19:00)
[2020-12-13] MEDS ORDERED: LORAZEPAM 2 MG/ML 1 ML VIAL IVP PRN (19:00)
[2020-12-13] MEDS ORDERED: ONDANSETRON 4MG INJ IVP PRN (19:00)
[2020-12-13] MEDS ORDERED: BISACODYL 10 MG SUPP.RECT RC PRN (19:00)
== END 2020-12-13 19:20 | disposition expired | DRG 189 ==
LOC: 2AH 15:00
PROVIDERS: ADMIT Internal Medicine Hematology & Oncology; ATTEND Internal Medicine Hematology & Oncology
DX: J96.01 Acute respiratory failure with hypoxia (principal); U07.1 COVID-19; J12.82 Pneumonia due to coronavirus disease 2019; I10 Essential (primary) hypertension; Z51.5 Encounter for palliative care
CPT/HCPCS: G0378